=== PATIENT | female | born 1970 | race Caucasian/White ===

== ENCOUNTER → 2016-10-16 | Outpatient (CLI) | payer BC ==
[2016-10-16 08:19] LABS: Basophils % (A) 1 %; CH 31.6; Eosinophils # (A) 0.1 k/uL (0-0.7); Eosinophils % (A) 1 %; HCT 40.2 % (34.0-46.0); HDW 2.68; HGB 13.8 gm/dL (11.4-16.0); Luc # (Auto) 0.09; Luc % (Auto) 2; Lymphocytes % (A) 37 %; MCH 31.9 pg (25.0-35.0); MCHC 34.2 g/dL (31.0-37.0); MCV 93.4 fL (80.0-100.0); Mean Platelet Volume 7.4; Monocytes # (A) 0.2 k/uL (0-1.0); Monocytes % (A) 4 %; Neutrophils % (A) 56 %; RBC 4.31 m/uL (3.80-5.40); RDW 12.8 % (11.5-15.5); WBC 5.4 k/uL (3.8-10.6); WBC (Perox) 5.62
[2016-10-16 10:15] LABS: ALT 28 U/L (9-52); AST 26 U/L (14-36); Alkaline Phosphatase 45 U/L (38-126); Anion Gap 10 mmol/L; Blood Urea Nitrogen 14 mg/dL (7-17); Calcium 9.4 mg/dL (8.4-10.2); Carbon Dioxide 23 mmol/L (22-30); Chloride 109 mmol/L (98-107); Cholesterol 175 mg/dL (<200); Glucose 85 mg/dL (74-99); HDL Cholesterol 82 mg/dL (40-60); Non-African American GFR(MDRD) >60 (>60 ml/min/1.73 sqM); Sodium 142 mmol/L (137-145); Total Bilirubin 0.7 mg/dL (0.2-1.3); Triglycerides 53 mg/dL (<150)
[2016-10-16 11:02] LABS: Vitamin B12 359 pg/mL (239-931)
[2016-10-16 11:09] LABS: Potassium 5.2 mmol/L (3.5-5.1)
--- NOTE | 2016-10-17 10:34 | MM ---
Reason for exam: screening (asymptomatic). Last mammogram was performed 1 year ago. History: Family history of breast cancer in paternal aunt at age 50. Benign excisional biopsy of the left breast, 2013. Physical Findings: A clinical breast exam by your physician is recommended on an annual basis and results should be correlated with mammographic findings. MG Screening Mammo w CAD Bilateral CC and MLO view(s) were taken. Prior study comparison: October 11, 2015, right breast MG 3d work up w/cad RT. November 20, 2013, bilateral digital screening mammo w/CAD. The breast tissue is heterogeneously dense. This may lower the sensitivity of mammography. There is no discrete abnormality. ASSESSMENT: Negative, BI-RAD 1 RECOMMENDATION: Routine screening mammogram of the right breast in 1 year.
== END | disposition home or self-care (01) ==
LOC: RADMAMWWP 06:54
PROVIDERS: ATTEND Family Medicine
DX: Z12.31 Encounter for screening mammogram for malignant neoplasm of breast (principal); Z00.00 Encounter for general adult medical examination without abnormal findings
CPT/HCPCS: 80061; 80053; 84443; 82607; 85025; 82306; 36415; G0202

== ENCOUNTER → 2017-11-04 | Outpatient (CLI) | payer BC ==
[2017-11-04 08:05] LABS: Basophils % (A) 1 %; Eosinophils # (A) 0.1 k/uL (0-0.7); Eosinophils % (A) 2 %; HCT 41.6 % (34.0-46.0); HGB 14.3 gm/dL (11.4-16.0); Lymphocytes # (A) 2.8 k/uL (1.0-4.8); Lymphocytes % (A) 44 %; MCH 30.8 pg (25.0-35.0); MCHC 34.4 g/dL (31.0-37.0); MCV 89.5 fL (80.0-100.0); Mean Platelet Volume 6.9; Monocytes # (A) 0.3 k/uL (0-1.0); Monocytes % (A) 4 %; Neutrophils # (A) 3.1 k/uL (1.3-7.7); Neutrophils % (A) 48 %; Platelet Count 251 k/uL (150-450); RBC 4.65 m/uL (3.80-5.40); RDW 12.6 % (11.5-15.5); WBC 6.4 k/uL (3.8-10.6)
[2017-11-04 09:12] LABS: Albumin 4.2 g/dL (3.5-5.0); Calcium 9.7 mg/dL (8.4-10.2); Potassium 5.3 mmol/L (3.5-5.1); Total Bilirubin 0.3 mg/dL (0.2-1.3); Total Protein 7.3 g/dL (6.3-8.2)
[2017-11-04 15:37] LABS: Insulin Level 10.9 mIU/mL (3.0-25.0); Vitamin D 25 Hydroxy 23.6 ng/mL (30.0-100.0)
[2017-11-04 17:49] LABS: Hemoglobin A1C 4.6 % (4.0-6.0)
== END | disposition home or self-care (01) ==
LOC: LABWHC1 06:54
PROVIDERS: ATTEND Family Medicine
DX: Z00.01 Encounter for general adult medical examination with abnormal findings (principal); E55.9 Vitamin D deficiency, unspecified; E04.1 Nontoxic single thyroid nodule; R63.5 Abnormal weight gain; Z83.2 Family history of diseases of the blood and blood-forming organs and certain disorders involving the immune mechanism
CPT/HCPCS: 36415; 80053; 80061; 81291; 82306; 83036; 83525; 84443; 84481; 85025

== ENCOUNTER → 2017-11-29 | Outpatient (CLI) | payer BC ==
--- NOTE | 2017-11-29 08:50 | US ---
EXAMINATION TYPE: US thyroid st tissue head/neck DATE OF EXAM: 11/29/2017 COMPARISON: US 2012 CLINICAL HISTORY: E04.1 SINGLE THYROID NODULE. GLAND SIZE: Right Lobe: 4.6 x 2.1 x 1.6 cm Overall Parenchyma: homogenous Left Lobe: 4.6 x 1.9 x 1.3 cm Overall Parenchyma: homogeneous Isthmus Thickness: 0.2 cm NODULES RIGHT: # of nodules measured on right: 2 of multiple 1. 0.5 X 0.6 x 0.3 cm hypoechoic mixed nodule at the upper pole with well-defined margins. This no dule is wider than tall and shows no intranodular vascularity. 2. 0.6 X 0.6 x 0.4 cm hypoechoic mixed nodule at the mid pole with well-defined margins. This nodul e is wider than tall and shows no intranodular vascularity. Prior size: 0.2cm cyst noted prior US LEFT: # of nodules measured on left: 2 largest of multiple 1. 0.4 X 0.3 x 0.2 cm hypoechoic mixed nodule at the upper pole with well-defined margins. This no dule is taller than wide and shows no intranodular vascularity. 2. 0.6 X 0.6 x 0.5 cm hypoechoic mixed nodule at the mid pole with well-defined margins. This nodul e is wider than tall and shows no intranodular vascularity. Prior size: largest previous simple cyst seen = 0.7cm ISTHMUS: # of nodules measured in the isthmus: 0 Bilateral neck scanned, no evidence of lymphadenopathy. IMPRESSION: Nonspecific thyroid nodularity as discussed.
--- NOTE | 2017-12-02 08:15 | MM ---
Reason for exam: screening (asymptomatic). Last mammogram was performed 1 year and 1 month ago. History: Family history of breast cancer in paternal aunt at age 50. Benign excisional biopsy of the left breast, 2013. Physical Findings: A clinical breast exam by your physician is recommended on an annual basis and results should be correlated with mammographic findings. MG Screening Mammo w CAD Bilateral CC and MLO view(s) were taken. Prior study comparison: October 16, 2016, bilateral MG screening mammo w CAD. October 11, 2015, right breast MG 3d work up w/cad RT. The breast tissue is heterogeneously dense. This may lower the sensitivity of mammography. There is no discrete abnormality. ASSESSMENT: Negative, BI-RAD 1 RECOMMENDATION: Routine screening mammogram of both breasts in 1 year.
== END | disposition home or self-care (01) ==
LOC: RADMAMWWP 06:50
PROVIDERS: ATTEND Family Medicine
DX: Z12.31 Encounter for screening mammogram for malignant neoplasm of breast (principal); E04.2 Nontoxic multinodular goiter
CPT/HCPCS: 76536; 77067

== ENCOUNTER → 2017-12-12 | Outpatient (CLI) | payer BC ==
--- NOTE | 2017-12-12 09:26 | NM ---
EXAMINATION TYPE: NM hepatobiliary w EF DATE OF EXAM: 12/12/2017 COMPARISON: Prior nuclear medicine HIDA scan October 18, 2014 HISTORY: Unspecified abdominal pain per order. Epigastric pain with heartburn, nausea, and bloating p er patient. TECHNIQUE: After the intravenous administration of 5.1 mCi Tc 99m Mebrofenin hepatobiliary scintigrap hy is performed. Immediate images post injection. FINDINGS: There is slightly poor diffuse diminished uptake of radiotracer by the liver. The gallbladder is vis ualized within 20 minutes. The small bowel activity is noted within 60 minutes. At one hour 8 ounce s of oral ensure plus is given to mimic CCK and gallbladder ejection fraction is calculated at 73 %, in the normal range. Therefore there is no scintigraphic evidence of cystic or common bile duct obst ruction to suggest acute cholecystitis or gallbladder dyskinesia. IMPRESSION: Exam is within normal limits.
== END ==
LOC: RADNMMAIN 06:42
PROVIDERS: ATTEND Family Medicine
DX: R10.9 Unspecified abdominal pain (principal)
CPT/HCPCS: 78226; A9537

== ENCOUNTER → 2019-02-27 | Outpatient (CLI) | payer BC ==
--- NOTE | 2019-03-01 22:11 | MR ---
EXAMINATION TYPE: MR cspine/tspine/lspine wo con DATE OF EXAM: 02/27/2019 COMPARISON: None HISTORY: Neck/low back pain into pelvis and legs TECHNIQUE: Multiplanar, multisequence imaging of the cervical spine, thoracic spine and lumbar spine is performed without IV contrast. FINDINGS: Cervical spine: The cervical spine vertebral bodies maintain normal vertebral body height and alignme nt. Multilevel disc desiccation is seen with discogenic endplate changes. Otherwise the bone marrow s ignal is within normal limits. The cervical spinal cord signal is also overall within normal limits g iven slight patient motion. C2-C3: Disc desiccation without spinal canal stenosis nor neural foraminal narrowing. C3-C4: Mild uncovertebral hypertrophy without significant neural foraminal narrowing nor spinal canal stenosis. Disc desiccation is also seen. C4-C5: Small broad-based disc bulge and uncovertebral hypertrophy without spinal canal stenosis nor n eural foraminal narrowing. C5-C6: There is a broad-based disc bulge slightly narrowing the ventral subarachnoid space without si gnificant spinal canal stenosis. Uncovertebral hypertrophy minimally narrows the left neural foramen as is facet arthropathy. No right neural foraminal narrowing. C6-C7: There is a broad-based disc bulge without spinal canal stenosis nor neural foraminal narrowing although the ventral subarachnoid space is slightly narrowed. C7-T1: No significant disc disease, spinal canal stenosis, nor neural foraminal narrowing. Thoracic spine: Multilevel disc desiccation is seen. Thoracic spine vertebral bodies maintain normal vertebral body heights and alignment. T1-T5: Disc desiccation without spinal canal stenosis nor neural foraminal narrowing. T5-T6: There is a small central disc herniation and disc desiccation without spinal canal stenosis no r neural foraminal narrowing. T6-T7: There is a small central disc herniation without spinal canal stenosis nor neural foraminal na rrowing. T7-T8 there is a small right paracentral disc herniation without spinal canal stenosis nor neural for aminal narrowing. T12: Degenerative disc disease without spinal canal stenosis or neural foraminal narrowing. Lumbar spine: There is a rudimentary discs are seen in the sacrum. The lumbar spine vertebral bodies maintain normal vertebral body heights and alignment. Conus medullaris is unremarkable terminating at T12-L1 L1-L2: No significant disc disease, spinal canal stenosis, nor neural foraminal narrowing. L2-L3: No significant disc disease, spinal canal stenosis, nor neural foraminal narrowing. L3-L4: No focal disc herniation. There is a small broad-based disc bulge without spinal canal stenosi s. Very minimal bilateral neural foraminal narrowing. L4-L5: There is a bilobed disc bulge, left eccentric creating mild bilateral neural foraminal narrowi ng, left greater than right. No spinal canal stenosis. L5-S1: There is a broad-based disc bulge, facet arthropathy, and ligamentum flavum buckling resulting in mild bilateral neural foraminal narrowing without spinal canal stenosis. Rudimentary disc is again is seen at S1-S2 and at S2-S3. 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 IMPRESSION: 1. Small central disc herniation at C5-6 and T6-T7 as well as right paracentral small disc herniation at T7-T8 without spinal canal stenosis nor neural foraminal narrowing. 2. Mild multilevel degenerative disc disease of the cervical spine most pronounced at C5-C6 with narr owing of the ventral subarachnoid space although this does not meet criteria for spinal canal stenosi s at this time. Variable degrees of neural foraminal narrowing are seen throughout the entirety of th e spine is detailed in each level above. No focal spinal canal stenosis.
== END | disposition home or self-care (01) ==
LOC: RADMRIMAIN 16:49
PROVIDERS: ATTEND Family Medicine
DX: M50.222 Other cervical disc displacement at C5-C6 level (principal); M51.24 Other intervertebral disc displacement, thoracic region; M50.322 Other cervical disc degeneration at C5-C6 level
CPT/HCPCS: 72141; 72146; 72148

== ENCOUNTER → 2019-07-17 | Outpatient (CLI) | payer BC ==
--- NOTE | 2019-07-20 10:34 | MM ---
Reason for exam: screening (asymptomatic). Last mammogram was performed 1 year and 8 months ago. History: Family history of breast cancer in paternal aunt at age 50. Benign excisional biopsy of the left breast, 2013. Physical Findings: A clinical breast exam by your physician is recommended on an annual basis and results should be correlated with mammographic findings. MG 3D Screening Mammo W/Cad Bilateral CC, MLO, and XCCL view(s) were taken. Prior study comparison: November 29, 2017, bilateral MG screening mammo w CAD. October 16, 2016, bilateral MG screening mammo w CAD. The breast tissue is heterogeneously dense. This may lower the sensitivity of mammography. There is no discrete abnormality. No significant changes when compared with prior studies. ASSESSMENT: Negative, BI-RAD 1 RECOMMENDATION: Routine screening mammogram of both breasts in 1 year.
== END | disposition home or self-care (01) ==
LOC: RADMAMWWP 09:00
PROVIDERS: ATTEND Obstetrics & Gynecology Obstetrics
DX: Z12.31 Encounter for screening mammogram for malignant neoplasm of breast (principal)
CPT/HCPCS: 77063; 77067

== ENCOUNTER → 2021-01-17 | Outpatient (CLI) | payer BC ==
--- NOTE | 2021-01-17 12:45 | ECHOF ---
Referral Reason:M79.89 OTHER SPECIFIED SOFT TISSUE DISORDER MEASUREMENTS -------- HEIGHT: 172.7 cm WEIGHT: 97.1 kg BP: IVSd: 1.0 cm (0.6 - 1.1) LVIDd: 5.0 cm (3.9 - 5.3) LVPWd: 1.3 cm (0.6 - 1.1) IVSs: 1.8 cm LVIDs: 1.8 cm LVPWs: 1.8 cm LAESV Index (A-L): 31.06 ml/m Ao Diam: 3.2 cm (2.0 - 3.7) AV Cusp: 1.8 cm (1.5 - 2.6) LA Diam: 2.7 cm (2.7 - 3.8) MV EXCURSION: 17.874 mm (> 18.000) MV EF SLOPE: 154 mm/s (70 - 150) EPSS: 1.5 cm MV E Holland: 0.81 m/s MV DecT: 144 ms MV A Holland: 0.78 m/s MV E/A Ratio: 1.04 RAP: 5.00 mmHg RVSP: 10.07 mmHg FINDINGS -------- This was a technically good study. The left ventricular size is normal. Left ventricular wall thickness is normal. Overall left vent ricular systolic function is normal with, an EF between 55 - 60 %. The diastolic filling pattern is normal for the age of the patient 10.78. The right ventricle is normal in size. The left atrial size is normal. Normal LA size by volume 22+/-6 ml/m2. The right atrial size is normal. The aortic valve is trileaflet and appears structurally normal. The mitral valve is normal. There is trace mitral regurgitation. The tricuspid valve appears structurally normal. Trace tricuspid regurgitation present. Right estelita tricular systolic pressure is normal at < 35 mmHg. There is no pulmonic regurgitation present. The aortic root size is normal. Normal inferior vena cava with normal inspiratory collapse consistent with estimated right atrial pre ssure of 5 mmHg. There is no pericardial effusion. CONCLUSIONS -------- 1. The left ventricular size is normal. 2. Left ventricular wall thickness is normal. 3. Overall left ventricular systolic function is normal with, an EF between 55 - 60 %. 4. The diastolic filling pattern is normal for the age of the patient 10.78 5. There is trace mitral regurgitation. 6. Trace tricuspid regurgitation present. 7. There is no pericardial effusion. GAME OPERATOR: Nakita Cruz RDCS
== END | disposition home or self-care (01) ==
LOC: RADECHMAIN 11:08
PROVIDERS: ATTEND Family Medicine
DX: I08.1 Rheumatic disorders of both mitral and tricuspid valves (principal)
CPT/HCPCS: 93306

== ENCOUNTER 2021-01-20 17:24 | Emergency (ER) | payer BC ==
[2021-01-20 17:32] VITALS: BP 129/81; PULSE 68; RESP 18; TEMP 97.9
--- NOTE | 2021-01-20 18:48 | ED ---
General Adult HPI - General Source: patient, RN notes reviewed Mode of arrival: ambulatory Limitations: no limitations <Toñito Braun - Last Filed: 01/20/21 18:45> <Alex Gallardo - Last Filed: 01/20/21 20:29> - General Chief complaint: Neck Pain/Injury Stated complaint: Neck/Shoulder Swelling Time Seen by Provider: 01/20/21 17:51 - History of Present Illness Initial comments: Patient is a 50-year-old female that presents to the emergency department complaining of left sided neck swelling. She notes that she woke up this morning looked in the mere in her left side of her neck appeared squishy. Patient notes that for the last 10 weeks she has been swollen all over her abdomen is got bigger. She notes that all the tests that she's gotten from specialists of been negative. She notes that she recently got an echocardiogram which was negative and was within normal limits. Patient has not gotten routine lab work done to test for thyroid function yet but follows up with her primary care in the next several days to do that. Patient was in no distress or pain while sitting up in bed during exam and interview. She noted that her neck being squishy made her come to the ER as she was concerned. She also noted that she is fatigued, having difficulty losing weight, decreased appetite. She notes that she did have a abdominal computed tomography scan done approximately 7 weeks ago which was negative for any acute intra-abdominal findings but did show some fluid in the base of her long. Patient denied any shortness of breath headache nausea vomiting diarrhea constipation fever chills chest pain lig htheadedness dizziness (Toñito Braun) - Related Data Allergies Allergy/AdvReac Type Severity Reaction Status Date / Time No Known Allergies Allergy Verified 01/20/21 19:19 Review of Systems ROS Other: All systems not noted in ROS Statement are negative. <Toñito Braun - Last Filed: 01/20/21 18:45> ROS Other: All systems not noted in ROS Statement are negative. <Alex Gallardo - Last Filed: 01/20/21 20:29> ROS Statement: Those systems with pertinent positive or pertinent negative responses have been documented in the HPI. Past Medical History Additional Past Medical History / Comment(s): barrets disease, compound Heterozygous MTHFR History of Any Multi-Drug Resistant Organisms: None Reported Past Surgical History: Ablation, Orthopedic Surgery, Tubal Ligation Additional Past Surgical History / Comment(s): left kidney Past Psychological History: No Psychological Hx Reported Smoking Status: Former smoker Past Alcohol Use History: Occasional Past Drug Use History: None Reported <Toñito Braun - Last Filed: 01/20/21 18:45> General Exam Limitations: no limitations General appearance: alert, in no apparent distress, obese Head exam: Present: atraumatic, normocephalic, normal inspection Eye exam: Present: normal appearance, PERRL, EOMI. Absent: scleral icterus, conjunctival injection, periorbital swelling Neck exam: Present: normal inspection, other (Neck and supraclavicular area was symmetrical with no obvious deformities on the left side.). Absent: tenderness, lymphadenopathy Respiratory exam: Present: normal lung sounds bilaterally. Absent: respiratory distress, wheezes, rales, rhonchi, stridor Cardiovascular Exam: Present: regular rate, normal rhythm, normal heart sounds. Absent: systolic murmur, diastolic murmur, rubs, gallop, clicks GI/Abdominal exam: Present: soft, normal bowel sounds. Absent: distended, tenderness, guarding, rebound, rigid Extremities exam: Present: normal inspection, full ROM, normal capillary refill. Absent: tenderness, pedal edema, joint swelling, calf tenderness Neurological exam: Present: alert, oriented X3, CN II-XII intact Psychiatric exam: Present: normal affect, normal mood Skin exam: Present: warm, dry, intact, normal color. Absent: rash <Toñito Braun - Last Filed: 01/20/21 18:45> Course Vital Signs 01/20/21 01/20/21 17:28 18:32 Temperature 97.9 F Pulse Rate 68 Respiratory 18 18 Rate Blood Pressure 129/81 O2 Sat by Pulse 100 Oximetry Medical Decision Making <Toñito Braun - Last Filed: 01/20/21 18:45> - Lab Data Result diagrams: 01/20/21 18:41 01/20/21 18:41 <Alex Gallardo - Last Filed: 01/20/21 20:29> - Medical Decision Making 50-year-old female complaining of the left side of her neck being swollen and squishy. CT of the soft tissue of the neck, basic labs ordered. Patient declined the need for any pain medication as she was in no pain. (Toñito Braun) CT soft tissue neck shows no evidence of the supraclavicular lump, there is an asymmetric mild enlargement of the right tonsil compared to the left. She has normal epiglottis. On exam patient does have an enlarged right tonsil that is not erythematous or with exudate. Patient doesn't have a sore throat and does not have fevers. Patient states that she came to the emergency room after being with her sister today feeling some swelling to the left side of her neck supraclavicular. It is nontender. She was directed to follow up with her primary care doctor Dr. Chaves for continuation of care. Case discussed with Dr. Hawk. (Alex Gallardo) - Lab Data Lab Results 01/20/21 01/20/21 Range/Units 18:41 18:41 WBC 11.4 H (3.8-10.6) k/uL RBC 4.74 (3.80-5.40) m/uL Hgb 14.1 (11.4-16.0) gm/dL Hct 40.0 (34.0-46.0) % MCV 84.5 (80.0-100.0) fL MCH 29.7 (25.0-35.0) pg MCHC 35.2 (31.0-37.0) g/dL RDW 12.9 (11.5-15.5) % Plt Count 220 (150-450) k/uL MPV 6.9 Neutrophils % 60 % Lymphocytes % 34 % Monocytes % 4 % Eosinophils % 1 % Basophils % 1 % Neutrophils # 6.8 (1.3-7.7) k/uL Lymphocytes # 3.9 (1.0-4.8) k/uL Monocytes # 0.4 (0-1.0) k/uL Eosinophils # 0.2 (0-0.7) k/uL Basophils # 0.1 (0-0.2) k/uL Sodium 139 (137-145) mmol/L Potassium 4.0 (3.5-5.1) mmol/L Chloride 106 (98-107) mmol/L Carbon Dioxide 20 L (22-30) mmol/L Anion Gap 13 mmol/L BUN 16 (7-17) mg/dL Creatinine 0.77 (0.52-1.04) mg/dL Est GFR (CKD-EPI)AfAm >90 (>60 ml/min/1.73 sqM) Est GFR (CKD-EPI)NonAf >90 (>60 ml/min/1.73 sqM) Glucose 89 (74-99) mg/dL Calcium 10.0 (8.4-10.2) mg/dL Disposition <Toñito Braun - Last Filed: 01/20/21 18:45> Is patient prescribed a controlled substance at d/c from ED?: No Time of Disposition: 20:28 <Alex Gallardo - Last Filed: 01/20/21 20:29> Clinical Impression: Localized swelling, mass or lump of neck Disposition: HOME SELF-CARE Condition: Good Instructions (If sedation given, give patient instructions): Neck Pain (ED) Additional Instructions: Follow-up with the primary Care doctor this week. return to the emergency room with fevers, pain or difficulty in breathing. Referrals: Jose Chaves MD [Primary Care Provider] - 1-2 days
[2021-01-20 18:54] LABS: Basophils # (A) 0.1 k/uL (0-0.2); Basophils % (A) 1 %; Eosinophils # (A) 0.2 k/uL (0-0.7); Eosinophils % (A) 1 %; HGB 14.1 gm/dL (11.4-16.0); Lymphocytes # (A) 3.9 k/uL (1.0-4.8); Lymphocytes % (A) 34 %; MCH 29.7 pg (25.0-35.0); MCHC 35.2 g/dL (31.0-37.0); MCV 84.5 fL (80.0-100.0); Mean Platelet Volume 6.9; Monocytes # (A) 0.4 k/uL (0-1.0); Monocytes % (A) 4 %; Neutrophils # (A) 6.8 k/uL (1.3-7.7); Neutrophils % (A) 60 %; Platelet Count 220 k/uL (150-450); RBC 4.74 m/uL (3.80-5.40); RDW 12.9 % (11.5-15.5); WBC 11.4 k/uL (3.8-10.6)
[2021-01-20 19:04] LABS: African American GFR (CKD) >90 (>60 ml/min/1.73 sqM); Anion Gap 13 mmol/L; Blood Urea Nitrogen 16 mg/dL (7-17); Carbon Dioxide 20 mmol/L (22-30); Chloride 106 mmol/L (98-107); Glucose 89 mg/dL (74-99); Non-African American GFR(CKD) >90 (>60 ml/min/1.73 sqM); Sodium 139 mmol/L (137-145)
--- NOTE | 2021-01-20 19:22 | CT ---
EXAMINATION TYPE: CT soft tissue neck wo con DATE OF EXAM: 01/20/2021 COMPARISON: None HISTORY: Left supraclavicular lump. CT DLP: 311.3 mGycm Automated exposure control for dose reduction was used. Images obtained from the aortic arch to the sella turcica without contrast. The parotid glands are symmetric. Submandibular salivary glands are symmetric. The anterior triangle cervical lymph nodes appear within normal limits. There is no significant adenopathy. Epiglottis is n ormal. Prevertebral soft tissues appear intact. There is mild asymmetric enlargement of the right ton guille compared to the left. This measures 2.5 x 1.4 cm. The thyroid gland is symmetric. I do not see en largement of the supraclavicular lymph node. There is no evidence of posterior triangle cervical horacio opathy. The trachea appears intact. There is normal branching pattern of the great vessels on the aor tic arch. The cervical vertebra have normal alignment. There is minor degenerative disc changes at C5 -6 and C6-7. IMPRESSION: No evidence of a supraclavicular lump. There is asymmetric mild enlargement of the right tonsil nish red to the left that should be correlated with the physical exam. Normal epiglottis.
== END 2021-01-20 21:04 | disposition home or self-care (01) ==
LOC: EC 17:24
DX: R22.1 Localized swelling, mass and lump, neck (principal); Z87.891 Personal history of nicotine dependence; Z98.51 Tubal ligation status
CPT/HCPCS: 36415; 70490; 80048; 85025; 99284

== ENCOUNTER → 2021-02-14 | Outpatient (CLI) | payer BC ==
[2021-02-14 13:52] LABS: Basophils # (A) 0.06 X 10*3/uL (0.00-0.10); Eosinophils # (A) 0.09 X 10*3/uL (0.04-0.35); Eosinophils % (A) 1.5 %; HCT 39.3 % (37.2-46.3); HGB 13.1 g/dL (12.0-15.0); MCHC 33.3 g/dL (32.0-37.0); MCV 87.1 fL (80.0-97.0); Mean Platelet Volume 9.4 fL (9.5-12.2); Monocytes # (A) 0.41 X 10*3/uL (0.20-1.00); Monocytes % (A) 6.6 %; Neutrophils # (A) 3.49 X 10*3/uL (1.80-7.70); Neutrophils % (A) 56.4 %; Platelet Count 263 X 10*3/uL (140-440); RBC 4.51 X 10*6/uL (4.10-5.20); RDW 12.8 % (11.5-14.5); WBC 6.18 X 10*3/uL (4.50-10.00)
[2021-02-14 16:27] LABS: African American GFR (CKD) 99.6 (60.0-200.0); Albumin 4.6 g/dL (3.80-4.90); Albumin/Globulin Ratio 1.84 (1.60-3.17); Anion Gap 9.8 mmol/L (4.00-12.00); BUN/Creat Ratio 21.25 Ratio (12.00-20.00); Calcium 9.4 mg/dL (8.7-10.3); Carbon Dioxide 21.2 mmol/L (21.6-31.8); Chol/HDL Ratio 3.44; Globulin 2.5 g/dL (1.6-3.3); LDL Cholesterol,Calculated 148.6 mg/dL (0.0-131.0); Potassium 4.7 mmol/L (3.5-5.5); Total Bilirubin 0.4 mg/dL (0.3-1.2); Total Protein 7.1 g/dL (6.2-8.2); VLDL Calculation 22.4 mg/dL (5.00-40.00)
[2021-02-14 17:25] LABS: Insulin Level 8.3 mIU/mL (3.0-25.0)
[2021-02-14 18:54] LABS: Hemoglobin A1C 5.1 % (4.0-6.0)
[2021-02-14 21:31] LABS: EBV-EA (IgG) <0.2 AI; EBV-EBNA(IgG) >8.0 AI; EBV-VCA (IgG) >8.0 AI; EBV-VCA (IgM) <0.2 AI
== END | disposition home or self-care (01) ==
LOC: LABWHC1 07:17
PROVIDERS: ATTEND Family Medicine
DX: Z00.01 Encounter for general adult medical examination with abnormal findings (principal); D72.829 Elevated white blood cell count, unspecified; E55.9 Vitamin D deficiency, unspecified; R59.0 Localized enlarged lymph nodes; Z68.31 Body mass index [BMI] 31.0-31.9, adult
CPT/HCPCS: 36415; 80053; 80061; 82306; 83036; 83525; 84439; 84443; 85025; 86644; 86645; 86663; 86664; 86665

== ENCOUNTER → 2021-03-24 | Outpatient (CLI) | payer BC ==
--- NOTE | 2021-03-24 16:42 | EST ---
EXERCISE STRESS AGE: 51 SEX: F HT: 5'8" WT: 212 lbs. PROTOCOL: Mitch STAGE: 3 DURATION OF EXERCISE: 9:00 HEART RATE REST: 163 BLOOD PRESSURE REST: 122/83 MAXIMUM HEART RATE ACHIEVED: 155 MAXIMUM BLOOD PRESSURE: 166/83 85% MPHR: 145 100% MPHR: 170 METS: 10.3 INDICATIONS: Abnormal EKG CLINICAL INFORMATION: Baseline EKG revealed normal sinus rhythm without significant ST-T changes. Isolated PVCs were noted. Patient walked on a standard Mitch protocol for a total duration of 9 minutes, achieved a maximal heart rate of 155 beats per minute, which is more than 85% of predicted maximal. With exercise, the PVCs disappeared. There was a lot of baseline artifact again in the recovery period. Isolated PVCs were noted. There were no clear-cut ST-segment changes to indicate ischemia. Maximal heart rate was 152 beats per minute. There was a lot of baseline artifact. By EKG criteria, this is a negative stress test with fair exercise capacity. Isolated PVCs were noted. No anginal symptoms were noted. This is a negative stress test by EKG criteria. There were minor resting EKG changes to begin with. MMODL / IJN: [id number] /
== END | disposition home or self-care (01) ==
LOC: RADNMMAIN 10:47
PROVIDERS: ATTEND Nurse Practitioner Family
DX: I49.3 Ventricular premature depolarization (principal)
CPT/HCPCS: 93017

== ENCOUNTER → 2021-04-21 | Outpatient (CLI) | payer BC ==
--- NOTE | 2021-04-21 08:05 | MR ---
EXAMINATION TYPE: MR neck wo/w con DATE OF EXAM: 04/21/2021 COMPARISON: CT neck January 20, 2021 HISTORY: Swelling left side of neck x 4 months. CONTRAST: Standard multiplanar, multisequence MRI departmental protocol images were obtained without contrast a nd with 9 mL intravenous Gadavist gadolinium contrast. FINDINGS: . Parotid and submandibular glands are symmetric and thought within normal limits. No abnormal greater than 1 cm neck adenopathy is identified bilaterally. Stable scattered bilateral s ubcentimeter lymph nodes. The parapharyngeal fat spaces are symmetric and maintained. The masseter muscles are symmetric and un remarkable. Visualized portion of brain parenchyma is unremarkable. Postcontrast images show no suspi cious enhancing masses. Visualized portion of the airway is patent. Thyroid gland remains within norm al limits. No focal fluid collection noted. IMPRESSION: Unremarkable study. No significant change from recent comparison CT.
== END | disposition home or self-care (01) ==
LOC: RADMRIMAIN 06:37
PROVIDERS: ATTEND Otolaryngology
DX: R22.1 Localized swelling, mass and lump, neck (principal)
CPT/HCPCS: 70543; A9585

== ENCOUNTER → 2022-03-02 | Outpatient (CLI) | payer BC ==
[2022-03-02 14:02] LABS: Basophils # (A) 0.04 X 10*3/uL (0.00-0.10); Basophils % (A) 0.6 %; Eosinophils # (A) 0.12 X 10*3/uL (0.04-0.35); Eosinophils % (A) 1.9 %; HCT 39.5 % (37.2-46.3); HGB 12.9 g/dL (12.0-15.0); Immature Grans, Automated 0.5 %; Lymphocytes # (A) 2.21 X 10*3/uL (0.90-5.00); Lymphocytes % (A) 34.5 %; MCH 28.6 pg (27.0-32.0); MCHC 32.7 g/dL (32.0-37.0); MCV 87.6 fL (80.0-97.0); Monocytes # (A) 0.34 X 10*3/uL (0.20-1.00); Monocytes % (A) 5.3 %; NRBC Per 100 WBC 0 /100 WBCS (0.0-0.0); Neutrophils # (A) 3.66 X 10*3/uL (1.80-7.70); Neutrophils % (A) 57.2 %; Platelet Count 278 X 10*3/uL (140-440); RBC 4.51 X 10*6/uL (4.10-5.20); RDW 12.8 % (11.5-14.5)
[2022-03-02 15:46] LABS: ALT 16 U/L (8-44); AST 21 U/L (13-35); African American GFR (CKD) 75.5 (60.0-200.0); Albumin 4.4 g/dL (3.8-4.9); Albumin/Globulin Ratio 1.38 (1.60-3.17); Alkaline Phosphatase 78 U/L (41-126); Calcium 9.7 mg/dL (8.7-10.3); Carbon Dioxide 24.6 mmol/L (20.0-27.5); Chloride 104 mmol/L (96-109); Chol/HDL Ratio 3.07 Ratio; Globulin 3.2 g/dL (1.6-3.3); Glucose 97 mg/dL (70-110); LDL Cholesterol,Calculated 131.4 mg/dL (0.0-131.0); Non-African American GFR(CKD) 65.2 (60.0-200.0); Potassium 5.1 mmol/L (3.5-5.5); Sodium 140 mmol/L (135-145); Total Protein 7.6 g/dL (6.2-8.2); VLDL Calculation 13.64 mg/dL (5.00-40.00)
--- NOTE | 2022-03-05 08:41 | MM ---
Reason for Exam: Screening (asymptomatic). Last mammogram was performed 2 year(s) and 8 month(s) ago. Patient History: Menarche at age 12. First Full-Term at age 22. 2013, Benign Excisional Biopsy on the left side. Paternal aunt had breast cancer, age 50. Risk Values: Farheen 5 year model risk: 1.2%. NCI Lifetime model risk: 10.2%. Prior Study Comparison: 10/16/2016 Bilateral Screening Mammogram, [facility]. 11/29/2017 Bilateral Screening Mammogram, [facility]. 07/17/2019 Bilateral Screening Mammogram, [facility]. Tissue Density: There are scattered fibroglandular densities. Findings: Analyzed By CAD. No suspicious groups of microcalcifications, spiculated or lobular masses, architectural distortion or other secondary signs of malignancy are mammographically apparent. Overall Assessment: Negative, BI-RAD 1 Management: Screening Mammogram of both breasts in 1 year. A negative mammogram report should not preclude additional follow up of suspicious palpable abnormalities. Patient should continue monthly self breast exam. A clinical breast exam by your physician is recommended on an annual basis and results should be correlated with mammographic findings. Electronically signed and approved by: Addison Arciniega D.O. Radiologis
== END | disposition home or self-care (01) ==
LOC: RADMAMWWP 07:11
PROVIDERS: ATTEND Family Medicine
DX: Z12.31 Encounter for screening mammogram for malignant neoplasm of breast (principal); Z80.3 Family history of malignant neoplasm of breast
CPT/HCPCS: 77063; 77067; 80053; 80061; 82306; 83036; 84439; 84443; 85025

== ENCOUNTER → 2023-03-13 | Outpatient (CLI) | payer BC ==
--- NOTE | 2023-03-14 09:45 | MM ---
Reason for Exam: Screening (asymptomatic). Last screening mammogram was performed 12 month(s) ago. Patient History: Menarche at age 12. First Full-Term at age 22. Postmenopausal. 2013, Benign Excisional Biopsy on the left side. Paternal aunt had breast cancer, age 50. Risk Values: Farheen 5 year model risk: 1.2%. NCI Lifetime model risk: 10.0%. Prior Study Comparison: 11/29/2017 Bilateral Screening Mammogram, [facility]. 07/17/2019 Bilateral Screening Mammogram, [facility]. 03/02/2022 Bilateral MG 3D screening mammo w/cad, [facility]. Tissue Density: There are scattered fibroglandular densities. Findings: Analyzed By CAD. There is no suspicious group of microcalcifications or new suspicious mass in either breast. Overall Assessment: Negative, BI-RAD 1 Management: Screening Mammogram of both breasts in 1 year. A clinical breast exam by your physician is recommended on an annual basis and results should be correlated with mammographic findings. Note on Farheen scores and lifetime risk: 1. A Farheen score greater than 3% is considered moderate risk. If this is the case, consider specialist referral to assess eligibility for a risk reducing agent. If overall lifetime risk for the development of breast cancer is 20% or higher, the patient may qualify for future screening with alternating mammogram and breast MRI. Electronically signed and approved by: Alvin Neri D.O.
== END | disposition home or self-care (01) ==
LOC: RADMAMWWP 14:52
PROVIDERS: ATTEND Family Medicine
DX: Z12.31 Encounter for screening mammogram for malignant neoplasm of breast (principal); Z78.0 Asymptomatic menopausal state; Z80.3 Family history of malignant neoplasm of breast
CPT/HCPCS: 77063; 77067

== ENCOUNTER → 2023-03-22 | Outpatient (CLI) | payer BC ==
[2023-03-22 15:38] LABS: Basophils # (A) 0.04 X 10*3/uL (0.00-0.10); Basophils % (A) 0.6 %; Eosinophils # (A) 0.06 X 10*3/uL (0.04-0.35); Eosinophils % (A) 0.9 %; HCT 43.8 % (37.2-46.3); HGB 14.8 d/dL (12.0-15.0); Lymphocytes # (A) 3.06 X 10*3/uL (0.90-5.00); Lymphocytes % (A) 45.8 %; MCH 29.1 pg (27.0-32.0); MCHC 33.8 d/dL (32.0-37.0); MCV 86.1 FL (80.0-97.0); Mean Platelet Volume 9.3 FL (9.5-12.2); Monocytes # (A) 0.32 X 10*3/uL (0.20-1.00); Monocytes % (A) 4.8 %; NRBC Per 100 WBC 0 X 10*3/uL (0.00-0.01); Neutrophils # (A) 3.18 X 10*3/uL (1.80-7.70); Neutrophils % (A) 47.6 %; Platelet Count 269 X 10*3/uL (140-440); RBC 5.09 X 10*6/uL (4.10-5.20); RDW 12.4 % (11.5-14.5); WBC 6.68 X 10*3/uL (4.50-10.00)
[2023-03-22 16:21] LABS: Chol/HDL Ratio 3.33 Ratio; LDL Cholesterol,Calculated 135.3 mg/dL (0.0-131.0)
[2023-03-22 16:26] LABS: ALT 18 U/L (8-44); AST 20 U/L (13-35); Albumin 4.9 d/dL (3.8-4.9); Albumin/Globulin Ratio 1.88 Ratio (1.60-3.17); Alkaline Phosphatase 93 U/L (41-126); Blood Urea Nitrogen 19.2 mg/dL (9.0-27.0); Carbon Dioxide 24.3 mmol/L (21.6-31.8); Chloride 105 mmol/L (96-109); Globulin 2.6 d/dL (1.6-3.3); Glucose 91 mg/dL (70-110); Potassium 4.9 mmol/L (3.5-5.5); Sodium 142 mmol/L (135-145); Total Bilirubin 0.3 mg/dL (0.3-1.2); Total Protein 7.5 d/dL (6.2-8.2)
== END | disposition home or self-care (01) ==
LOC: LABWHC1 08:37
PROVIDERS: ATTEND Family Medicine
DX: Z00.01 Encounter for general adult medical examination with abnormal findings (principal); E55.9 Vitamin D deficiency, unspecified
CPT/HCPCS: 36415; 80053; 80061; 82306; 83036; 84439; 84443; 85025

== ENCOUNTER → 2023-10-25 | Outpatient (CLI) | payer BC ==
[2023-10-25 16:12] LABS: ALT 18 U/L (8-44); AST 20 U/L (13-35); Albumin 4.5 g/dL (3.8-4.9); Albumin/Globulin Ratio 1.73 Ratio (1.60-3.17); Alkaline Phosphatase 99 U/L (41-126); BUN/Creat Ratio 17.67 Ratio (12.00-20.00); Blood Urea Nitrogen 15.9 mg/dL (9.0-27.0); Calcium 9.9 mg/dL (8.7-10.3); Carbon Dioxide 26.7 mmol/L (21.6-31.8); Chloride 105 mmol/L (96-109); Chol/HDL Ratio 2.89 Ratio; Globulin 2.6 g/dL (1.6-3.3); Glucose 97 mg/dL (70-110); LDL Cholesterol,Calculated 125.6 mg/dL (0.0-131.0); Potassium 4.8 mmol/L (3.5-5.5); Sodium 141 mmol/L (135-145); Total Bilirubin 0.4 mg/dL (0.3-1.2); Total Protein 7.1 g/dL (6.2-8.2); VLDL Calculation 17.52 mg/dL (5.00-40.00)
== END | disposition home or self-care (01) ==
LOC: LABWHC1 08:23
PROVIDERS: ATTEND Family Medicine
DX: E78.5 Hyperlipidemia, unspecified (principal)
CPT/HCPCS: 36415; 80053; 80061; 83036

== ENCOUNTER → 2024-04-17 | Outpatient (CLI) | payer BC ==
[2024-04-17 10:49] LABS: Basophils # (A) 0.04 X 10*3/uL (0.00-0.10); Basophils % (A) 0.6 %; Eosinophils # (A) 0.09 X 10*3/uL (0.04-0.35); Eosinophils % (A) 1.4 %; HCT 40.1 % (37.2-46.3); HGB 13.7 g/dL (12.0-15.0); Lymphocytes # (A) 2.35 X 10*3/uL (0.90-5.00); Lymphocytes % (A) 37.8 %; MCH 29.3 pg (27.0-32.0); MCHC 34.2 g/dL (32.0-37.0); MCV 85.9 FL (80.0-97.0); Mean Platelet Volume 9.2 FL (9.5-12.2); Monocytes # (A) 0.31 X 10*3/uL (0.20-1.00); NRBC Per 100 WBC 0 X 10*3/uL (0.00-0.01); Neutrophils % (A) 54.9 %; Platelet Count 243 X 10*3/uL (140-440); RBC 4.67 X 10*6/uL (4.10-5.20); RDW 12.8 % (11.5-14.5); WBC 6.21 X 10*3/uL (4.50-10.00)
[2024-04-17 11:12] LABS: ALT 15 U/L (8-44); AST 18 U/L (13-35); Albumin 4.5 g/dL (3.8-4.9); Albumin/Globulin Ratio 1.73 Ratio (1.60-3.17); Alkaline Phosphatase 91 U/L (41-126); BUN/Creat Ratio 13.33 Ratio (12.00-20.00); Calcium 9.8 mg/dL (8.7-10.3); Carbon Dioxide 23.2 mmol/L (21.6-31.8); Chloride 106 mmol/L (96-109); Chol/HDL Ratio 2.98 Ratio; Globulin 2.6 g/dL (1.6-3.3); Glucose 102 mg/dL (70-110); LDL Cholesterol,Calculated 118.9 mg/dL (0.0-131.0); Potassium 4.4 mmol/L (3.5-5.5); Sodium 141 mmol/L (135-145); Total Bilirubin 0.4 mg/dL (0.3-1.2); Total Protein 7.1 g/dL (6.2-8.2)
--- NOTE | 2024-04-22 08:13 | MM ---
Reason for Exam: Screening (asymptomatic). Last mammogram was performed 1 year(s) and 1 month(s) ago. Patient History: Menarche at age 12. First Full-Term at age 22. Postmenopausal. 2013, Benign Excisional Biopsy on the left side. Paternal aunt had breast cancer, age 50. Risk Values: Farheen 5 year model risk: 1.3%. NCI Lifetime model risk: 9.8%. Prior Study Comparison: 10/07/2015 Bilateral Screening Mammogram, [facility]. 10/11/2015 Right Diagnostic Mammogram, [facility]. 10/16/2016 Bilateral Screening Mammogram, [facility]. 11/29/2017 Bilateral Screening Mammogram, [facility]. 07/17/2019 Bilateral Screening Mammogram, [facility]. 03/02/2022 Bilateral MG 3D screening mammo w/cad, [facility]. 03/13/2023 Bilateral MG 3D screening mammo w/cad, [facility]. Tissue Density: The breasts are heterogeneously dense, which may obscure small masses. Findings: Analyzed By CAD. There is no suspicious group of microcalcifications or new suspicious mass in either breast. There are benign-appearing lymph nodes. Overall Assessment: Benign, BI-RAD 2 Management: Screening Mammogram of both breasts in 1 year. . Patient should continue monthly self-breast exams. A clinical breast exam by your physician is recommended on an annual basis. This exam should not preclude additional follow-up of suspicious palpable abnormalities. Note on Farheen scores and lifetime risk: 1. A Farheen score greater than 3% is considered moderate risk. If this is the case, consider specialist referral to assess eligibility for a risk reducing agent. 2. If overall lifetime risk for the development of breast cancer is 20% or higher, the patient may qualify for future screening with alternating mammogram and breast MRI. [facility], , 04/22/2024 8:11 AM. Electronically signed and approved by: Shady Medina M.D. Radiologis
== END | disposition home or self-care (01) ==
LOC: RADMAMWWP 06:52
PROVIDERS: ATTEND Family Medicine
DX: Z12.31 Encounter for screening mammogram for malignant neoplasm of breast (principal); Z00.01 Encounter for general adult medical examination with abnormal findings; E78.5 Hyperlipidemia, unspecified; Z68.31 Body mass index [BMI] 31.0-31.9, adult; E55.9 Vitamin D deficiency, unspecified; Z78.0 Asymptomatic menopausal state; Z80.3 Family history of malignant neoplasm of breast; R92.333 Mammographic heterogeneous density, bilateral breasts
CPT/HCPCS: 77063; 77067; 80053; 80061; 82306; 83036; 83525; 84439; 84443; 85025